=== PATIENT | female | born 1965 | race Caucasian/White ===

== ENCOUNTER 2017-04-20 13:52 | Emergency (ER) | payer BC ==
[~2017-04-20] VITALS: Ht 170.2 cm; Wt 59.9 kg
--- NOTE | 2017-04-20 15:11 | NUR ---
Patient discharged to home in stable conditon. Written and verbal after care instructions given. Patient verbalizes understanding of instructions.
== END 2017-04-20 15:13 | disposition home or self-care (01) ==
LOC: ER 13:52
DX: S69.92XA Unspecified injury of left wrist, hand and finger(s), initial encounter (principal); W23.0XXA Caught, crushed, jammed, or pinched between moving objects, initial encounter; Y93.89 Activity, other specified; Y92.9 Unspecified place or not applicable; Y99.9 Unspecified external cause status
CPT/HCPCS: 73140; A4663

== ENCOUNTER 2020-06-07 13:29 | Emergency (ER) | payer BC ==
[~2020-06-07] VITALS: Ht 170.2 cm; Wt 58.1 kg
[2020-06-07] MEDS ORDERED: ACETAMINOPHEN ES 500 MG TABLET PO ONE (13:45)
--- NOTE | 2020-06-07 13:54 | NUR ---
pt is in room #2b. dr Vazquez evaluated the pt.
[2020-06-07] MEDS ORDERED: ACETAMINOPHEN ES 500 MG TABLET ONE (14:00)
--- NOTE | 2020-06-07 15:18 | NUR ---
PT WAS D/C'd TO HOME. D/C INSTRUCTIONS GIVEN TO THE PT BY DR STALEY.
[2020-06-07 15:19] VITALS: BP 129/81
== END 2020-06-07 15:21 | disposition home or self-care (01) ==
LOC: ER 13:29
DX: S02.2XXA Fracture of nasal bones, initial encounter for closed fracture (principal); V13.4XXA Pedal cycle driver injured in collision with car, pick-up truck or van in traffic accident, initial encounter; Y93.55 Activity, bike riding; Y92.488 Other paved roadways as the place of occurrence of the external cause; Z88.2 Allergy status to sulfonamides
CPT/HCPCS: 70160; A4663; A9150